=== PATIENT | female | born 1960 | race Caucasian/White ===

== ENCOUNTER 2021-11-07 13:42 | Outpatient (CLI) | payer OTHER, SELFPAY ==
--- NOTE | 2021-11-07 14:00 | CRLHL7_ITS ---
For Patients: As a result of the Century Cures Act, medical imaging exams and procedure reports are released immediately into your electronic medical record. You may view this report before your referring provider. If you have questions, please contact your health care provider. BILATERAL SCREENING MAMMOGRAM WITH COMPUTER-AIDED DETECTION AND TOMOSYNTHESIS TECHNIQUE: CC and MLO views were obtained. These mammographic images have been obtained using full-field digital technique. These mammographic images were interpreted with the benefit of computer-aided detection. Breast Tomosynthesis was used in this interpretation. COMPARISON FILM: 09/15/20; 09/15/19; 06/13/18 FINDINGS: There are scattered areas of fibroglandular density IMPRESSION: There is no radiographic evidence for malignancy. ASSESSMENT: BI-RADS Category 1: Negative RECOMMENDATION: Routine screening mammogram in 1 year. A lay language report of this examination will be provided to the patient. Murray Ohara M.D. Diagnostic/Musculoskeletal Radiologist [email or web address] SEN/[email or web address] Transcribed: 2:42 p.m. PT/Dictated by: Murray Ohara MD @ 11/08/2021 9:59:00 AM (Electronically Signed)
== END 2021-11-07 13:43 | disposition home or self-care (01) ==
LOC: MAMMO 13:43
PROVIDERS: PCP Internal Medicine; Visit Provider Internal Medicine
DX: Z12.31 Encounter for screening mammogram for malignant neoplasm of breast (principal)
CPT/HCPCS: 77063; 77067

== ENCOUNTER 2022-04-16 08:12 | Outpatient (CLI) | payer OTHER, SELFPAY ==
[2022-04-16 11:26] LABS: Cholesterol* 214 mg/dL (90-199); Glucose* 94 mg/dL (60-115); HDL Cholesterol* 71 mg/dL (>=50); LDL Cholesterol Calculated 127 mg/dL (<100); Triglycerides* 80 mg/dL (40-149)
== END 2022-04-16 08:13 | disposition home or self-care (01) ==
PROVIDERS: PCP Internal Medicine; Visit Provider Internal Medicine
DX: Z13.1 Encounter for screening for diabetes mellitus (principal); Z13.6 Encounter for screening for cardiovascular disorders
CPT/HCPCS: 80061; 82947

== ENCOUNTER 2022-05-24 12:59 | Outpatient (CLI) | payer OTHER, SELFPAY ==
--- NOTE | 2022-05-24 13:00 | CRLHL7_ITS ---
For Patients: As a result of the Century Cures Act, medical imaging exams and procedure reports are released immediately into your electronic medical record. You may view this report before your referring provider. If you have questions, please contact your health care provider. DXA BONE MINERAL DENSITY STUDY Reason for exam: Screen. Current height (in): 66. Weight (lb): 120. Menopause age: 51. Ethnicity: White. 1. Have you had a previous hip or vertebral fracture? No. 2. Have you had any fractures during your adult life which did not result from significant trauma (e.g., auto accident)? No. 3. Did either of your parents have a hip fracture? Yes. 4. Do you smoke? No. 5. Have you ever taken Glucocorticoids? No. 6. Do you have rheumatoid arthritis? No. 7. Do you have secondary osteoporosis? No. 8. Do you drink 3 or more alcoholic drinks per day? No. 9. Are you being treated for osteoporosis? No. 10. Have you ever taken any of the following medications: Actonel, Evista, Fosamax, Miacalcin, Reclast, Boniva, Forteo, HRT (i.e. estrogen/hormone therapy), Protelos, Prolia, Vitamin D, Calcium, other ??? please specify. ANSWER: Yes, vitamin D, calcium. 11. Do you have any of the following medical conditions: Anorexia or bulimia, asthma or emphysema, end stage renal disease, hyperparathyroidism, any seizure disorders, cancer, inflammatory bowel diseases, hysterectomy, other ??? please specify. ANSWER: No. 12. What was your maximum height (inches)? 67. 13. Do you perform weight bearing exercise regularly? Yes. 14. Do you regularly consume dairy products? Yes. 15. Do you drink caffeinated beverages? Yes. 16. At what age did your period start? 15. 17. Are you premenopausal? No. 18. How many full term pregnancies have you had? 2. 19. Have you ever missed your period for more than 6 months in a row (not including or menopause)? No. TECHNIQUE: Bone mineral density study was performed using the [employer]. FINDINGS: The results of the study expressed as bone mineral density (BMD) are as follows: Lumbar spine L1 to L4: BMD: 0.743 g/cm2. T-score: -2.8. Z-score: -1.2. Neck Left: BMD: 0.514 g/cm2. T-score: -3.0. Z-score: -1.7. Right: BMD: 0.479 g/cm2. T-score: -3.3. Z-score: -2.0. Total Left: BMD: 0.688 g/cm2. T-score: -2.1. Z-score: 1.1. Right: BMD: 0.675 g/cm2. T-score: -2.2. Z-score: -1.2 IMPRESSION: Osteoporosis. *Comparison exams done prior to 08/2019 were performed on different unit, [employer]. Kj Arroyo M.D. Diagnostic Radiologist [email or web address] WILLEM/Dictated by: Kj Arroyo MD @ 05/25/2022 10:03:00 AM (Electronically Signed)
== END 2022-05-24 13:00 | disposition home or self-care (01) ==
LOC: RAD 13:00
PROVIDERS: PCP Internal Medicine; Visit Provider Internal Medicine
DX: Z13.820 Encounter for screening for osteoporosis (principal); M81.0 Age-related osteoporosis without current pathological fracture; Z78.0 Asymptomatic menopausal state
CPT/HCPCS: 77080

== ENCOUNTER 2022-05-31 11:44 | Outpatient (CLI) | payer OTHER, SELFPAY | END 2022-05-31 11:45 | disposition home or self-care (01) | LOC: NFLDREF 06-01 16:13 | PROVIDERS: PCP Internal Medicine; Referring Provider Internal Medicine; Visit Provider Internal Medicine | DX: M81.0 Age-related osteoporosis without current pathological fracture (principal) | CPT/HCPCS: 80053; 82306; 82310; 83970; 84443 ==

== ENCOUNTER 2022-11-13 10:35 | Outpatient (CLI) | payer OTHER, SELFPAY ==
--- NOTE | 2022-11-13 10:45 | CRLHL7_ITS ---
For Patients: As a result of the Century Cures Act, medical imaging exams and procedure reports are released immediately into your electronic medical record. You may view this report before your referring provider. If you have questions, please contact your health care provider. BILATERAL SCREENING MAMMOGRAM WITH COMPUTER-AIDED DETECTION AND TOMOSYNTHESIS TECHNIQUE: CC and MLO views were obtained. These mammographic images have been obtained using full-field digital technique. These mammographic images were interpreted with the benefit of computer-aided detection. Breast Tomosynthesis was used in this interpretation. COMPARISON FILM: 11/07/21, 09/15/20, 09/15/19. FINDINGS: The breasts are heterogeneously dense, which may obscure small masses IMPRESSION: There is no radiographic evidence for malignancy. ASSESSMENT: BI-RADS Category 1: Negative RECOMMENDATION: Routine screening mammogram in 1 year. A lay language report of this examination will be provided to the patient. Kj Arroyo M.D. Diagnostic Radiologist [email or web address] WILLEM/Dictated by: Kj Arroyo MD @ 11/13/2022 12:18:00 PM (Electronically Signed)
== END 2022-11-13 10:36 | disposition home or self-care (01) ==
LOC: MAMMO 10:36
PROVIDERS: PCP Internal Medicine; Visit Provider Internal Medicine
DX: Z12.31 Encounter for screening mammogram for malignant neoplasm of breast (principal); R92.2 Inconclusive mammogram
CPT/HCPCS: 77063; 77067

== ENCOUNTER 2023-05-07 15:00 | Outpatient (CLI) | payer OTHER, SELFPAY | END 2023-05-07 15:01 | disposition home or self-care (01) | LOC: NFLDREF 15:01 | PROVIDERS: PCP Internal Medicine; Visit Provider Internal Medicine | DX: M81.0 Age-related osteoporosis without current pathological fracture (principal) | CPT/HCPCS: 82306 ==

== ENCOUNTER 2024-05-11 11:33 | Outpatient (CLI) | payer OTHER, SELFPAY ==
--- NOTE | 2024-05-11 11:30 | CRLHL7_ITS ---
For Patients: As a result of the Cures Act, medical imaging exams and procedure reports are released immediately into your electronic medical record. You may view this report before your referring provider. If you have questions, please contact your health care provider. BILATERAL SCREENING MAMMOGRAM WITH COMPUTER-AIDED DETECTION AND TOMOSYNTHESIS TECHNIQUE: CC and MLO views were obtained. These mammographic images have been obtained using full-field digital technique. These mammographic images were interpreted with the benefit of computer-aided detection. Breast Tomosynthesis was used in this interpretation. COMPARISON FILM: 11/13/22, 11/07/21, 09/15/20. FINDINGS: There are scattered areas of fibroglandular density IMPRESSION: There is no radiographic evidence for malignancy. ASSESSMENT: BI-RADS Category 1: Negative RECOMMENDATION: Routine screening mammogram in 1 year. A lay language report of this examination will be provided to the patient. Kj Arroyo M.D. Diagnostic Radiologist [email or web address] [email or web address]/[email or web address] Transcribed: 4:16 p.mAbhijeet araujo/Dictated by: Kj Arroyo MD @ 05/12/2024 8:38:00 AM (Electronically Signed)
== END 2024-05-11 11:34 | disposition home or self-care (01) ==
LOC: MAMMO 11:33
PROVIDERS: PCP Internal Medicine; Visit Provider Internal Medicine
DX: Z12.31 Encounter for screening mammogram for malignant neoplasm of breast (principal)
CPT/HCPCS: 77063; 77067

== ENCOUNTER 2024-06-11 10:25 | Outpatient (CLI) | payer OTHER, SELFPAY | END 2024-06-11 10:26 | disposition home or self-care (01) | LOC: NFLDREF 06-16 20:32 | PROVIDERS: PCP Internal Medicine; Referring Provider Internal Medicine; Visit Provider Internal Medicine | DX: M85.80 Other specified disorders of bone density and structure, unspecified site (principal) | CPT/HCPCS: 82306 ==

== ENCOUNTER 2024-10-02 07:14 | Outpatient (CLI) | payer OTHER, SELFPAY ==
--- NOTE | 2024-10-02 08:17 | P.ANES_ITS ---
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
--- NOTE | 2024-10-02 08:17 | W.ANESCHARGE ---
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
--- NOTE | 2024-10-02 08:20 | P.ANES_ITS ---
Anesthesia Charges Start Date/Time Anesthesia Start Date: 10/02/24 Anesthesia Start Time: 07:43 Stop Date/Time Anesthesia Stop Date: 10/02/24 Anesthesia Stop Time: 08:15 Coding CPT Codes CPT Codes: KAYA LWR INTST NDVT NOS - [id number] ([id number]) P1 - NORMAL HEALTHY PATIENT, QX - SALES STORE CHECKER SVLeslie W/ MED DIRECTION, QK - CASH APPLICATION CLERK 2-4 CNCRNT KAYA PROC
--- NOTE | 2024-10-02 08:20 | W.ANESCHARGE ---
Anesthesia Charges Start Date/Time Anesthesia Start Date: 10/02/24 Anesthesia Start Time: 07:43 Stop Date/Time Anesthesia Stop Date: 10/02/24 Anesthesia Stop Time: 08:15 Coding CPT Codes CPT Codes: KAYA LWR INTST NDOH NOS - 52400 ([id number]) P1 - NORMAL HEALTHY PATIENT, QX - LUMBER CARRIER SVLeslie W/ MED DIRECTION, QK - FINANCIAL INSTITUTION PRESIDENT 2-4 CNCRNT KAYA PROC
== END 2024-10-02 07:15 | disposition home or self-care (01) ==
LOC: OP CLINIC 07:15
PROVIDERS: PCP Internal Medicine; Visit Provider Internal Medicine Gastroenterology
DX: Z12.11 Encounter for screening for malignant neoplasm of colon (principal); D12.7 Benign neoplasm of rectosigmoid junction; K57.30 Diverticulosis of large intestine without perforation or abscess without bleeding
CPT/HCPCS: 00811; 00812; 45385; 88305; J2704